=== PATIENT | female | born 1965 | race Caucasian/White ===

== ENCOUNTER 2016-10-26 08:19 | Emergency (ER) | payer BC, OTHER ==
[2016-10-26 08:28] VITALS: BP 154/83; PULSE 80; TEMP 97.8; BMI 27.4
--- NOTE | 2016-10-26 09:20 | PDOC ---
History of Present Illness - General Chief Complaint: Cold Symptoms Stated Complaint: SINUS CONGESTION, EAR PAIN Time Seen by Provider: 10/26/16 08:58 History Source: Patient Exam Limitations: No Limitations - History of Present Illness Initial Comments: 10/26/16 13:39 My chief complaint: Sinus pressure, ear pressure and nasal congesion for 1 1/2 weeks. History of present illness: Patient is a 51 year old female here today complaining of frontal sinus pressure and bilateral ear pressure and nasal congestion times one and a half weeks. Pt. denies any cough, has decreased ability to smell. Pt. denies any post surgical drip, cough, or sore throat. Patient denies any fever. Patient denies any recent travel or any sick contacts. Reports having surgery on her frontal sinuses many years ago. Timing/Duration: getting worse Severity: moderate Associated Symptoms: reports: other (frontal sinus presssure rt. sided, nasal congestion, b/l ear pressure) Past History - Past Medical History Allergies/Adverse Reactions: Allergies Allergy/AdvReac Type Severity Reaction Status Date / Time No Known Allergies Allergy Verified 10/26/16 08:25 Home Medications: Ambulatory Orders Amox-Tr/K Cl [Augmentin - 875Mg Tablet] 1 tab PO BID #20 tablet 10/26/16 Fexofenadine/Pseudoephedrine [Ijeoma-D 12 Hour Tablet] 1 each PO DAILY #10 tab.er.12h 10/26/16 Fluticasone Prop 0.05% Nasal [Flonase -] 2 spray NS DAILY #1 spray.pump HTN: Yes (H/O) Suicide Attempt (Hx): No - Surgical History Abdominal Surgery: Yes (HERNIA, TUMMY TUCK) - Immunization History Immunization Up to Date: Yes - Psycho/Social/Smoking Cessation Hx Anxiety: No Suicidal Ideation: No Smoking History: Never smoked Have you smoked in the past 12 months: No Number of Cigarettes Smoked Daily: 0 Cigars Per Day: 0 Information on smoking cessation initiated: No Hx Alcohol Use: No Drug/Substance Use Hx: No Substance Use Type: None Review of Systems - Review of Systems Able to Perform ROS?: Yes Constitutional: No: Symptoms Reported HEENTM: Yes: Nose Congestion, Other (frontal sinus presssure, ear pressure b/l, decreased sense of smell ) Respiratory: No: Symptoms reported Cardiac (ROS): No: Symptoms Reported ABD/GI: No: Symptoms Reported : No: Symptoms Reported Musculoskeletal: No: Symptoms Reported Integumentary: No: Symptoms Reported Neurological: No: Symptoms reported *Physical Exam - Vital Signs Last Vital Signs Temp Pulse Resp BP Pulse Ox 97.8 F 80 18 154/83 100 10/26/16 08:26 10/26/16 08:26 10/26/16 08:26 10/26/16 08:26 10/26/16 08:26 - Physical Exam General Appearance: Yes: Appropriately Dressed HEENT: positive: TMs Normal, Nasal Congestion (rt. nostril superior turbinate edema ), Rhinorrhea, Sinus Tenderness (frontal rt, maxillary b/l ). negative: Pharyngeal Erythema, Tonsillar Exudate, Tonsillar Erythema Neck: negative: Lymphadenopathy (R), Lymphadenopathy (L) Respiratory/Chest: positive: Lungs Clear, Normal Breath Sounds. negative: Chest Tender, Respiratory Distress Cardiovascular: positive: Regular Rhythm, Regular Rate, S1, S2 Integumentary: positive: Normal Color Neurologic: positive: Alert, Responsive Medical Decision Making - Medical Decision Making 10/26/16 13:49 Patient is a 51 year old female here today complaining of frontal sinus pressure and bilateral ear pressure and nasal congestion times one and a half weeks. Pt. denies any cough, has decreased ability to smell. Pt. denies any post surgical drip, cough, or sore throat. Patient denies any fever. Patient denies any recent travel or any sick contacts. Reports having surgery on her frontal sinuses many years ago. 10/26/16 13:50 sinusitis plan: ALLERGRA D 12 HR ONE TAB DAILY # 10 DAYS AUGMENTIN 875MG BID FOR # 20 FLONASE 2 SPRAYS EACH NOSTRILS DAILY FOR 10 DAYS *DC/Admit/Observation/Transfer Diagnosis at time of Disposition: Nasal congestion Sinusitis, acute Qualifiers: Sinusitis location: frontal Recurrence: non-recurrent Qualified Code(s): J01.10 - Acute frontal sinusitis, unspecified - Discharge Dispostion Disposition: HOME Condition at time of disposition: Stable - Prescriptions Prescriptions: Fexofenadine/Pseudoephedrine [Ijeoma-D 12 Hour Tablet] 1 each PO DAILY #10 tab.er.12h Amox-Tr/K Cl [Augmentin - 875Mg Tablet] 1 tab PO BID #20 tablet Fluticasone Prop 0.05% Nasal [Flonase -] 2 spray NS DAILY #1 spray.pump - Referrals Referrals: Tomi Camp MD [Staff Physician] - - Patient Instructions Additional Instructions: Put a towel around your head and lean over bathroom sink with hot water running to make steam and breath in for appromimately 10 minutes a few times a day to help facilitate drainage of your sinuses Also you may apply a warm washcloth to your face a few times a day Follow-up with ear nose and throat Dr. Camp as soon as possible for further evaluation Return to emergency room if symptoms worsen Patient voiced understanding of discharge instructions and all questions were answered - Post Discharge Activity Work/School Note: Back to Work
== END 2016-10-26 09:24 | disposition home or self-care (01) ==
LOC: JERFT 08:19
DX: J01.10 Acute frontal sinusitis, unspecified (principal); I10 Essential (primary) hypertension
CPT/HCPCS: 99281-25

== ENCOUNTER 2017-08-21 19:36 | Emergency (ER) | payer BC, OTHER ==
[2017-08-21 19:55] VITALS: BMI 26.6
--- NOTE | 2017-08-21 19:55 | PDOC ---
History of Present Illness - General Chief Complaint: Cold Symptoms Stated Complaint: VOMITING Time Seen by Provider: 08/21/17 19:54 History Source: Patient Exam Limitations: No Limitations - History of Present Illness Initial Comments: 08/21/17 20:15 52-year-old female with a history of hypertension presents to the emergency department complaining of fever, chills, general malaise, nonproductive cough, sore throat x3d but denies nausea/vomiting, facial pain, neck stiffness/pain, back pains, chest pain, shortness of breath, abdominal pains, flank pains, urinary symptoms. Timing/Duration: 24 hours Past History - Past Medical History Allergies/Adverse Reactions: Allergies Allergy/AdvReac Type Severity Reaction Status Date / Time No Known Allergies Allergy Verified 08/21/17 19:49 Home Medications: Ambulatory Orders Fexofenadine/Pseudoephedrine [Ijeoma-D 12 Hour Tablet] 1 each PO DAILY #10 tab.er.12h 10/26/16 Fluticasone Prop 0.05% Nasal [Flonase -] 2 spray NS DAILY #1 spray.pump HTN: Yes (H/O) - Surgical History Abdominal Surgery: Yes (HERNIA, TUMMY TUCK) - Immunization History Immunization Up to Date: Yes - Suicide/Smoking/Psychosocial Hx Smoking History: Never smoked Have you smoked in the past 12 months: No Number of Cigarettes Smoked Daily: 0 Cigars Per Day: 0 Hx Alcohol Use: No Drug/Substance Use Hx: No Substance Use Type: None Review of Systems - Review of Systems Able to Perform ROS?: Yes Comments:: 08/21/17 20:16 CONSTITUTIONAL: +fever/chills, generalized malaise Absent: diaphoresis, malaise, loss of appetite HEENT: Absent: rhinorrhea, nasal congestion, throat pain, throat swelling, difficulty swallowing, mouth swelling, ear pain, eye pain, visual Changes CARDIOVASCULAR: Absent: chest pain, loss of consciousness, palpitations, irregular heart rate, peripheral edema RESPIRATORY: +Non productive cough Absent: shortness of breath, dyspnea with exertion, orthopnea, wheezing, stridor , hemoptysis GASTROINTESTINAL: Absent: abdominal pain, abdominal distension, nausea, vomiting, diarrhea, constipation, melena, hematochezia GENITOURINARY: Absent: dysuria, frequency, urgency, hesitancy, hematuria, flank pain, genital pain MUSCULOSKELETAL: Absent: myalgia, arthralgia, joint swelling SKIN: Absent: rash, itching, pallor HEMATOLOGIC/IMMUNOLOGIC: Absent: easy bleeding, easy bruising, lymphadenopathy, frequent infections Is the patient limited Korean proficient: No *Physical Exam - Physical Exam Comments: 08/21/17 20:17 GENERAL: Well developed, well nourished. Awake and alert. No acute distress. HEENT: Normocephalic, atraumatic. PERRLA, EOMI. No conjunctival pallor. Sclera are non- icteric. Moist mucous membranes. Oropharynx is clear. NECK: Supple. Full ROM. No JVD. Carotid pulses 2+ and symmetric, without bruits. No thyromegaly. No lymphadenopathy. CARDIOVASCULAR: Regular rate and rhythm. No murmurs, rubs, or gallops. Distal pulses are 2+ and symmetric. PULMONARY: No evidence of respiratory distress. Lungs clear to auscultation bilaterally. No wheezing, rales or rhonchi. ABDOMINAL: Soft. Non-tender. Non-distended. No rebound or guarding. No organomegaly. Normoactive bowel sounds. MUSCULOSKELETAL Normal range of motion at all joints. No bony deformities or tenderness. No CVA tenderness. EXTREMITIES: No cyanosis. No clubbing. No edema. No calf tenderness. SKIN: Warm and dry. Normal capillary refill. No rashes. No jaundice. NEUROLOGICAL: Alert, awake, appropriate. Cranial nerves 2-12 intact. No deficits to light touch and temperature in face, upper extremities and lower extremities. No motor deficits in the in face, upper extremities and lower extremities. Normoreflexic in the upper and lower extremities. Normal speech. Toes are down- going bilaterally. Gait is normal without ataxia. PSYCHIATRIC: Cooperative. Good eye contact. Appropriate mood and affect. ED Treatment Course - RADIOLOGY Radiograph Interpretation: 08/21/17 21:11 CXR 2v NAD *DC/Admit/Observation/Transfer Diagnosis at time of Disposition: Influenza B - Discharge Dispostion Condition at time of disposition: Stable Admit: No - Referrals Referrals: Ayad De Los Santos MD [Staff Physician] - - Patient Instructions Printed Discharge Instructions: Influenza Additional Instructions: Rest Increase fluids Tylenol alternating with motrin as needed for fever every 6 hours Follow up with your physician Return to the ER for severe/persistent/worsening symptoms - Post Discharge Activity Forms/Work/School Notes: Back to Work
[2017-08-21] MEDS ORDERED: SODIUM CHLORIDE 1,000 ML IV STA ×2 (19:56→21:52)
[2017-08-21] MEDS ORDERED: IBUPROFEN 600 MG TABLET (FP) PO ONE ×2 (19:56→20:43)
[2017-08-21 21:51] VITALS: TEMP 100.4
[2017-08-21 22:56] VITALS: BP 130/82; PULSE 99
== END 2017-08-21 22:56 | disposition home or self-care (01) ==
LOC: JER 19:36
PROC: 3E0337Z Introduction of Electrolytic and Water Balance Substance into Peripheral Vein, Percutaneous Approach (ICD-10-PCS; principal; 2017-08-21)
DX: J10.1 Influenza due to other identified influenza virus with other respiratory manifestations (principal); I10 Essential (primary) hypertension
CPT/HCPCS: 71020-TC; 87070; 87430; 87804; 99283-25

== ENCOUNTER 2018-09-02 18:14 | Emergency (ER) | payer BC, OTHER ==
--- NOTE | 2018-09-02 18:23 | PDOC ---
Rapid Medical Evaluation Medical Evaluation: Allergies Allergy/AdvReac Type Severity Reaction Status Date / Time No Known Allergies Allergy Verified 08/21/17 19:49 09/02/18 18:15 09/02/18 18:26
[2018-09-02 18:33] VITALS: BP 141/93; TEMP 98.6; BMI 26.5
--- NOTE | 2018-09-02 19:04 | PDOC ---
History of Present Illness - General Chief Complaint: Pain, Acute Stated Complaint: RIGHT SIDE PAIN Time Seen by Provider: 09/02/18 19:04 History Source: Patient Exam Limitations: No Limitations - History of Present Illness Initial Comments: 09/02/18 19:17 53 year old female with no PMH presented to ED for right lower flank pain from 1100 to 1600 today. She stated the pain was constant, crampy, radiated to her right abdomen, no alleviating or aggravating factors. She admitted to nausea, chills. She denied dysuria, blood in stool, hematuria, diarrhea, vomiting, abdominal pain, chest pain, shortness of breath, cough, fever. Pt stated all symptoms have resolved, but she came to the ED because she was afraid the pain would happen again. Allergies: NKDA PCP: none Past History - Past Medical History Allergies/Adverse Reactions: Allergies Allergy/AdvReac Type Severity Reaction Status Date / Time No Known Allergies Allergy Verified 09/02/18 18:31 Home Medications: Ambulatory Orders NK [No Known Home Medication] 09/02/18 COPD: No HTN: Yes (H/O) - Surgical History Abdominal Surgery: Yes (HERNIA, TUMMY TUCK) - Immunization History Immunization Up to Date: Yes - Suicide/Smoking/Psychosocial Hx Smoking History: Never smoked Have you smoked in the past 12 months: No Number of Cigarettes Smoked Daily: 0 Cigars Per Day: 0 Hx Alcohol Use: No Drug/Substance Use Hx: No Substance Use Type: None Review of Systems - Review of Systems Able to Perform ROS?: Yes Comments:: 09/02/18 19:20 General: admitted to chills. denied fever, night sweats, generalized weakness. HEENT: denied sore throat, rhinorrhea, ear pain. Heart: denied chest pain, palpitations, syncope, lower extremity swelling, diaphoresis. Respiratory: denied shortness of breath, cough, sputum production, hemoptysis. Abdomen: admitted to nausea. denied abdominal pain, vomiting, diarrhea, constipation, blood in stool. : admitted to flank pain. denied dysuria, increased urinary frequency, hematuria, urinary incontinence. Back: denied back pain. Musculoskeletal: denied joint pain, muscle pain, joint swelling. Neurological: denied headache, dizziness, numbness, tingling, weakness. Skin: denied rash, laceration, abrasion. *Physical Exam - Vital Signs Last Vital Signs Temp Pulse Resp BP Pulse Ox 98.6 F 110 H 19 141/93 96 09/02/18 18:31 09/02/18 18:31 09/02/18 18:31 09/02/18 18:31 09/02/18 18:31 - Physical Exam Comments: 09/02/18 19:21 Constitutional: Well-nourished, Well-developed, appearing stated age. HEENT: head is normocephalic, atraumatic. EOMI. PERRLA. Neck: supple. Full ROM. Heart: regular rhythm. no murmurs, rubs or gallops. Lungs: clear to auscultation bilaterally. no crackles, rhonchi or wheezing. no stridor. Abdomen: soft, nontender. normal bowel sounds. no rebound, guarding, masses. murphys negative. Back: no CVA tenderness bilaterally. Extremities: Peripheral pulses intact. No lower extremity edema. Neurological: CN 2-12 grossly intact. Moves all four extremities. Psych: awake, alert, oriented x3. Follows commands. Answers questions appropriately. Skin: no rash to right flank, right back, abdomen. Vital Signs - Vital Signs #2 Pulse Rate: 96 Moderate Sedation - Procedure Monitoring Vital Signs: Procedure Monitoring Vital Signs Temperature 98.6 F 09/02/18 18:31 Pulse Rate 110 H 09/02/18 18:31 Respiratory Rate 19 09/02/18 18:31 Blood Pressure 141/93 09/02/18 18:31 O2 Sat by Pulse Oximetry (%) 96 09/02/18 18:31 Procedures - Bedside Ultrasound Bedside Ultrasound: Gallbladder Remarks: 09/02/18 20:51 No pericholecystic fluid. No GB wall thickening. No gallstones. No posterior acoustic shadowing. Sono murphys sign negative. Bedside right kidney US performed: no hydro. no cysts. Medical Decision Making - Medical Decision Making 09/02/18 19:21 53 year old female with no PMH presented to ED for right side pain associated with nausea and chills lasting from [id number] today that self resolved. Initial Vital Signs Temp Pulse Resp BP Pulse Ox 98.6 F 110 H 19 141/93 96 09/02/18 18:31 09/02/18 18:31 09/02/18 18:31 09/02/18 18:31 09/02/18 18:31 Afebrile. Tachycardic. No tachypnea. Mild hypertension. No hypoxia on room air. Vital Signs Temperature 98.6 F 09/02/18 18:31 Pulse Rate 96 H 09/02/18 19:25 Respiratory Rate 19 09/02/18 18:31 Blood Pressure 141/93 09/02/18 18:31 O2 Sat by Pulse Oximetry (%) 96 09/02/18 18:31 HR repeated manually by me. Tachycardia resolved. Labs ordered: UA/UC Medications ordered: none Imaging ordered: none 09/02/18 19:55 Bedside Right Kidney US performed: no hydronephrosis. no cysts. Bedside RUQ US performed: no thickened GB wall. no pericholecystic fluid. no GB stones. no posterior acoustic shadowing. sono murphys negative. Urine Test Results Urine Color Straw 09/02/18 19:43 Urine Appearance Clear 09/02/18 19:43 Urine pH 7.0 (5.0-8.0) 09/02/18 19:43 Ur Specific [place] 1.010 (1.010-1.035) 09/02/18 19:43 Urine Protein Negative (NEGATIVE) 09/02/18 19:43 Urine Glucose (UA) Negative (NEGATIVE) 09/02/18 19:43 Urine Ketones Negative (NEGATIVE) 09/02/18 19:43 Urine Blood 1+ (NEGATIVE) H 09/02/18 19:43 Urine Nitrite Negative (NEGATIVE) 09/02/18 19:43 Urine Bilirubin Negative (<2.0 mg/dL) 09/02/18 19:43 Ur Leukocyte Esterase Trace (NEGATIVE) 09/02/18 19:43 1+ blood in urine. WBC<5 No evidence of UTI. Pain possibly secondary to passed kidney stone. Pt continues to be pain free, no hydronephrosis on US, obstruction is unlikely. No indication for CT imaging at this time. Pt given multiple referrals for PCP. Pt informed to follow up with PCP in 1-2 days. Pt to be discharged. *DC/Admit/Observation/Transfer Diagnosis at time of Disposition: Flank pain - Discharge Dispostion Disposition: HOME Condition at time of disposition: Stable Decision to Admit order: No - Referrals - Patient Instructions Additional Instructions: DOCTORS RECOMMENDATIONS: Your lab work was normal, you do not have a urinary tract infection. There was some blood in your urine, this could be from a passed kidney stone. I did not see any gall stones in your gall bladder using ultrasound. I did not see any fluid backing up to the kidney using ultrasound. Take Ibuprofen 800 mg three times a day as needed for over the counter if the pain returns, take as advised on labels. I have provided you with multiple referrals for a primary care doctor. Follow up with one of them in 1-2 days. Your care is not complete until you follow up. Return to the Emergency Department for increasing pain, vomiting , fever>102F, fever>5 days, chest pain, shortness of breath, or any other new, worsening or concerning symptoms. - Post Discharge Activity Forms/Work/School Notes: Back to Work
[2018-09-02 19:25] VITALS: PULSE 96
--- NOTE | 2018-09-02 20:31 | PDOC ---
Attending Attestation - Resident Resident Name: Aysha Aguilar - ED Attending Attestation I have performed the following: I have examined & evaluated the patient, The case was reviewed & discussed with the resident, I agree w/resident's findings & plan, Exceptions are as noted - Physicial Exam PE: 09/02/18 20:50 Patient is awake and alert, well-nourished, in no distress Normocephalic and atraumatic PERRLA, EOMI, conjunctiva are pink, no scleral icterus CTA RRR Abdomen is soft, nontender, nondistended, bowel sounds present in all 4 quadrants, no CVA tenderness bilaterally - Medical Decision Making 09/02/18 20:51 53-year-old female presents with atraumatic right-sided abdominal and flank pain that has now resolved without associated nausea/vomiting/diarrhea/hematuria /dysuria. In the ER, patient was initially noted to be tachycardic but her heart rate has improved without any intervention. Serial abdominal exams reveal no focal abdominal tenderness. Patient tolerates by mouth. Will obtain UA to rule out hematuria/pyuria. Likely discharge. <Randal Castro - Last Filed: 09/02/18 20:50> - HPI HPI: 09/02/18 20:57 The patient is a 53 year old female, with no significant past medical history, who presents to the emergency department with complaint of pain to her right flank with radiation to her right upper abdomen which lasted from 1pm to 4pm. She denies the pain now, however, has an autistic child at home and was worried how she would car for him if the pain returned. The patient denies chest pain, shortness of breath, headache and dizziness. The patient denies fever, chills, nausea, vomit, diarrhea and constipation. The patient denies dysuria, frequency, urgency and hematuria. Allergies: NKDA Documentation prepared by Lois Fernandez, acting as medical collections specialist for Randal Castro MD <Lois Fernandez - Last Filed: 09/02/18 20:58>
[2018-09-02 20:43] LABS: URINE APPEARANCE CLEAR; URINE BILIRUBIN NEGATIVE (<2.0 mg/dL); URINE COLOR STRAW; URINE GLUCOSE (UA) NEGATIVE (NEGATIVE); URINE KETONE NEGATIVE (NEGATIVE); URINE LEUK ESTERASE TRACE (NEGATIVE); URINE NITRITE NEGATIVE (NEGATIVE); URINE PROTEIN NEGATIVE (NEGATIVE); URINE UROBILINOGEN NEGATIVE mg/dL (0.2-1.0)
[2018-09-02 20:58] LABS: EPI CELLS RARE /HPF (FEW)
== END 2018-09-02 21:47 | disposition home or self-care (01) ==
LOC: JER 18:14
PROC: BT41ZZZ Ultrasonography of Right Kidney (ICD-10-PCS; principal; 2018-09-02)
PROC: BF42ZZZ Ultrasonography of Gallbladder (ICD-10-PCS; 2018-09-02)
DX: R10.31 Right lower quadrant pain (principal)
CPT/HCPCS: 81003; 81015; 87086; 99281-25

== ENCOUNTER 2023-11-24 10:25 | Emergency (ER) | payer BC, OTHER ==
[2023-11-24 10:29] VITALS: BP 136/80; PULSE 87; RESP 18; TEMP 98.1; BMI 28.8
[2023-11-24] MEDS ORDERED: KETOROLAC TROMETHAMINE 30 MG/1 ML VIAL ONE (11:32)
[2023-11-24] MEDS: KETOROLAC TROMETHAMINE 30 MG/1 ML VIAL IM ONE (11:38)
== END 2023-11-24 12:50 | disposition home or self-care (01) ==
LOC: JERFT 10:25
PROC: 3E0233Z Introduction of Anti-inflammatory into Muscle, Percutaneous Approach (ICD-10-PCS; principal; 2023-11-24)
DX: M25.562 Pain in left knee (principal); W01.0XXA Fall on same level from slipping, tripping and stumbling without subsequent striking against object, initial encounter
CPT/HCPCS: 73552-TC-LT-FY; 73562-TC-LT-FY; 99284-25